=== PATIENT | female | born 1995 | race Caucasian/White ===

== ENCOUNTER → 2018-10-03 | Outpatient (REF) | payer SELFPAY ==
[~2018-10-03] MED LIST: AMOX-559 PO; CLAR-1 PO; LORA-1456 PO; OMEP-126 PO; ONDA4TAB97 PO; PROM-110 PO
[2018-10-03 12:01] LABS: PLATELET COUNT, AUTOMATED 179 K/uL (150-450)
== END ==
PROVIDERS: ATTEND Nurse Practitioner Family
DX: R10.9 Unspecified abdominal pain (principal)
CPT/HCPCS: 82040; 82150; 82247; 82310; 82374; 82435; 82565; 82947; 83690; 84075; 84132; 84155; 84295; 84450; 84460; 84520; 85025

== ENCOUNTER 2018-10-04 20:57 | Emergency (ER) | payer SELFPAY ==
--- NOTE | 2018-10-04 21:00 | ER Report ---
History and Physical Time Seen By MD: 20:54 HPI/ROS CHIEF COMPLAINT: Abdominal pain, vomiting HISTORY OF PRESENT ILLNESS: 23-year-old female presents ambulatory to the ER with continued vomiting all afternoon. She's complaining of epigastric pain. She has an extensive history of chronic abdominal pain and complaints that extends back to March. At that time she was heavily using creatine for 2 months. She stopped eating due to the side effects. She's lost 15 pounds. She is up from [place] to see her sister who had a baby 2 help out. REVIEW OF SYSTEMS: Respiratory: No cough, no dyspnea. Cardiovascular: No chest pain, no palpitations. Gastrointestinal: As above Musculoskeletal: No back pain. Allergies: Coded Allergies: No Known Drug Allergies (Unverified , 10/04/18) Home Meds Active Scripts Promethazine Hcl (PROMETHAZINE HCL) 25 Mg Tablet, 25 MG PO Q6H PRN for NAUSEA/VOMITING, #14 TAB Prov:ROSELIA ARMIJO DO 10/04/18 Lorazepam (ATIVAN) 1 Mg Tablet, 1 MG PO Q6-8H PRN for anxiety, #10 Prov:ROSELIA ARMIJO DO 10/04/18 Reported Medications Amoxicillin/Pot Clav 875-125 Mg Tab (AUGMENTIN 875-125 TABLET) 1 Each Tablet, 1 TAB PO Q12H, TAB 10/04/18 Clarithromycin (CLARITHROMYCIN) 500 Mg Tablet, 500 MG PO BID, #14 TAB 10/04/18 Ondansetron Hcl (ZOFRAN) 4 Mg Tablet, 4 MG PO Q12H, TAB 10/04/18 Omeprazole (OMEPRAZOLE) 20 Mg Capsule.dr, 1 CAP PO QDAY, CAP 10/04/18 Reviewed Nurses Notes: Yes Old Medical Records Reviewed: Yes Constitutional Vital Sign - Last 24 Hours 10/04/18 21:04 Temp 98.5 Pulse 127 Resp 16 B/P (MAP) 140/74 Pulse Ox 92 O2 Delivery Room Air Physical Exam General Appearance: The patient is alert, has no immediate need for airway protection and no current signs of toxicity., Pale appearing, skin warm and dry. Vital signs stable, afebrile, mildly tachycardic HEENT: Pupils equal and round no injection. TMs normal, oropharynx normal redness or exudate Respiratory: Chest is non tender, lungs are clear to auscultation. Cardiac: regular rate and rhythm Gastrointestinal: Abdomen is soft and non tender, no masses, bowel sounds normal. Musculoskeletal: Neck: Neck is supple and non tender. Extremities have full range of motion and are non tender. Skin: No rashes or lesions. DIFFERENTIAL DIAGNOSIS: After history and physical exam differential diagnosis was considered for abdominal pain including but not limited to appendicitis, cholecystitis, gastritis and urinary tract infection. Medical Decision Making Data Points Result Diagram: 10/04/188 10/04/188 Laboratory Hematology Test 10/04/18 21:18 White Blood Count 8.2 k/uL (4.5-11.0) Red Blood Count 4.46 M/uL (4.17-5.56) Hemoglobin 13.6 g/dL (12.0-16.0) Hematocrit 37.9 % (34.0-47.0) Mean Corpuscular Volume 85.0 fL (80.0-96.0) Mean Corpuscular Hemoglobin 30.5 pg (26.0-33.0) Mean Corpuscular Hemoglobin Concent 35.8 g/dL (32.0-36.0) Red Cell Distribution Width 12.4 % (11.5-14.5) Platelet Count 163 K/uL (150-450) Mean Platelet Volume 9.6 fL (7.2-11.1) Neutrophils (%) (Auto) 55.9 % (39.4-72.5) Lymphocytes (%) (Auto) 33.9 % (17.6-49.6) Monocytes (%) (Auto) 8.7 % (4.1-12.4) Eosinophils (%) (Auto) 1.0 % (0.4-6.7) Basophils (%) (Auto) 0.5 % (0.3-1.4) Nucleated RBC Relative Count (auto) 0.0 /100WBC Neutrophils # (Auto) 4.6 K/uL (2.0-7.4) Lymphocytes # (Auto) 2.8 K/uL (1.3-3.6) Monocytes # (Auto) 0.7 K/uL (0.3-1.0) Eosinophils # (Auto) 0.1 K/uL (0.0-0.5) Basophils # (Auto) 0.0 K/uL (0.0-0.1) Nucleated RBC Absolute Count (auto) 0.00 K/uL Chemistry Test 10/04/18 21:18 Sodium Level 140 mmol/L (137-145) Potassium Level 3.4 mmol/L (3.5-5.0) Chloride Level 105 mmol/L (98-107) Carbon Dioxide Level 22 mmol/L (22-31) Blood Urea Nitrogen 7 mg/dl (7-18) Creatinine 0.60 mg/dl (0.52-1.04) Glomerular Filtration Rate Calc > 60.0 Random Glucose 89 mg/dl (75-110) Calcium Level 9.2 mg/dl (8.4-10.2) Total Bilirubin 0.7 mg/dl (0.2-1.3) Aspartate Amino Transf (AST/SGOT) 21 U/L (0-35) Alanine Aminotransferase (ALT/SGPT) 31 U/L (0-56) Alkaline Phosphatase 46 U/L (0-126) Total Protein 8.0 g/dl (6.3-8.2) Albumin 4.8 g/dl (3.5-5.0) Amylase Level 53 U/L (0-110) Lipase 98 U/L (23-300) Human Chorionic Gonadotropin, Qual Negative (NEGATIVE) Urinalysis Test 10/04/18 21:01 Urine Color Yellow Urine Clarity Clear Urine pH 7.0 pH (4.8-9.5) Urine Specific Newborn 1.016 Urine Protein Negative mg/dL (NEGATIVE) Urine Glucose (UA) Negative mg/dL (NEGATIVE) Urine Ketones Negative mg/dL (NEGATIVE) Urine Blood Negative (NEGATIVE) Urine Nitrite Negative (NEGATIVE) Urine Bilirubin Negative (NEGATIVE) Urine Urobilinogen Negative mg/dL (0.2-1.9) Urine Leukocyte Esterase Negative (NEGATIVE) Urine RBC 1 /HPF (0-2/HPF) Urine WBC 1 /HPF (0-5/HPF) Urine Squamous Epithelial Cells Many /LPF (</=FEW) Urine Bacteria Few /HPF (NONE-FEW) Urine Mucus Few /HPF (NONE-FEW) ED Course/Re-evaluation Clinical Indication for ER IV: Hydration, IV Access ED Course Patient was admitted to an examination room. H&P was done. The differential diagnoses was considered. Patient with epigastric pain. And vomiting. Peripheral IV was established. Patient was treated with medication. Diagnostic laboratory studies were sent off which were unremarkable. Patient be discharged home on promethazine and Ativan. For her anxiety. Patient advised to follow-up with primary care if unimproved in 3-5 days. Decision to Disposition Date: Oct 04, 2018 Decision to Disposition Time: 22:31 Depart Departure Latest Vital Signs Vital Signs Date Time Temp Pulse Resp B/P (MAP) Pulse Ox O2 Delivery O2 Flow Rate FiO2 10/04/18 21:04 98.5 127 16 140/74 92 Room Air Impression: Primary Impression: Epigastric pain Additional Impression: Vomiting Condition: Improved Disposition: HOME OR SELF-CARE Referrals: NADIYA MURILLO JOHN A MD New Scripts Promethazine Hcl (PROMETHAZINE HCL) 25 Mg Tablet 25 MG PO Q6H PRN for NAUSEA/VOMITING, #14 TAB Prov: ROSELIA ARMIJO Ajit DO 10/04/18 Lorazepam (ATIVAN) 1 Mg Tablet 1 MG PO Q6-8H PRN for anxiety, #10 Prov: ZOFIAROSELIA Ajit DO 10/04/18 Patient Instructions: Acute Nausea and Vomiting (ED), Clear Liquid Diet (ED) Additional Instructions: Stop taking antibiotics, clarithromycin and amoxicillin Use Zofran and meclizine 25 mg as your primary nausea control, medication Use Phenergan for additional nausea control Start with clear liquids for the next 24 hours and advance to the brat (bananas, rice, applesauce and toast ) diet, then advance as tolerated Follow-up with Dr. Boewrs. Or Dr. Murillo, our general surgeons for endoscopy. They're numbers are included in the chart Problem Qualifiers Additional Impression: Vomiting Vomiting type: cyclical vomiting Vomiting Intractability: intractable Nausea presence: with nausea Qualified Codes: G43.A1 - Cyclical vomiting, intractable ZOFIAROSELIA DO Oct 04, 2018 20:59
[2018-10-04 21:04] VITALS: BP 140/74
[2018-10-04] MEDS ORDERED: AMOX-559 PO (21:14)
[2018-10-04] MEDS ORDERED: OMEP-126 PO (21:14)
[2018-10-04] MEDS ORDERED: CLAR-1 PO (21:14)
[2018-10-04] MEDS ORDERED: ONDA4TAB97 PO (21:14)
[2018-10-04] MEDS ORDERED: NS(*) 0.9% 1000 ML BAG 1,000 ML IV ONE (21:19)
[2018-10-04] MEDS ORDERED: PROMETHAZINE 25 MG/ML 1 ML AMP IVP ONE (21:20)
[2018-10-04] MEDS ORDERED: KETOROLAC 30 MG/ML VIAL IVP ONE (21:20)
[2018-10-04] MEDS ORDERED: ONDANSETRON 4 MG/2 ML VIAL IVP ONE (21:20)
[2018-10-04 21:36] LABS: PLATELET COUNT, AUTOMATED 163 K/uL (150-450)
[2018-10-04] MEDS ORDERED: LORazepam 1 MG TAB PO ONE (22:40)
[2018-10-04] MEDS ORDERED: PROM-110 PO (22:40)
[2018-10-04] MEDS ORDERED: LORA-1456 PO (22:40)
[2018-10-04] MEDS ORDERED: PROMETHAZINE HCL 25 MG TAB TH 2 TAB/BOTTLE PO ONE (22:40)
== END 2018-10-04 22:40 | disposition home or self-care (01) ==
LOC: EDUNIT# 20:57 → ER 21:01
DX: R10.13 Epigastric pain (principal); G43.A1 Cyclical vomiting, in migraine, intractable
CPT/HCPCS: 81001; 82150; 83690; 84703; 85025; 96361; 96374; 96375; 99284; J1885; J2405; J2550; J7030; 82040; 82247; 82310; 82374; 82435; 82565; 82947; 84075; 84132; 84155; 84295; 84450; 84460; 84520